=== PATIENT | female | born 1980 | race Two or more races ===

== ENCOUNTER → 2017-04-21 | Outpatient (CLI) | payer OTHER | LOC: BMCIMAGING 10:17 | PROVIDERS: ATTEND Physician Assistant Medical | DX: N64.4 Mastodynia (principal) ==

== ENCOUNTER → 2018-06-26 | Outpatient (CLI) | payer OTHER | LOC: CIMAGING 12:51 | PROVIDERS: ATTEND Family Medicine | DX: N63.11 Unspecified lump in the right breast, upper outer quadrant (principal); R92.0 Mammographic microcalcification found on diagnostic imaging of breast | CPT/HCPCS: 76641-PO ==

== ENCOUNTER → 2018-07-23 | Day surgery (SDC) | payer OTHER ==
[~2018-07-23] MED LIST: BUPIVACAINE 0.5% 30 ML SDV ONE; LIDOCAINE 1% 300 MG/30 ML SDV ONE
== END | disposition home or self-care (01) ==
LOC: FIMAGING 07:19
PROVIDERS: ATTEND Radiology Diagnostic Radiology
DX: N60.11 Diffuse cystic mastopathy of right breast (principal)